=== PATIENT | male | born 2000 | race Caucasian/White ===

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

== ENCOUNTER 2021-12-23 17:45 | Emergency (ER) | payer OTHER ==
[~2021-12-23] VITALS: Ht 175.2 cm; Wt 61.2 kg
[~2021-12-23 17:45] MED LIST changes: +NAPROSYN500 MG PO; +TYLENOL325 M1 PO
[2021-12-23 19:13] LABS: BILIRUBIN 1+ (Negative); BLOOD Negative (Negative); CLARITY Cloudy (Clear); COLOR Dark Yellow (Yellow); GLUCOSE Negative (Negative); KETONE 1+ (Negative); LEUKO ESTERASE Trace (Negative); NITRITE Negative (Negative); PH 6.5 (4.5-8.0); SPECIFIC GRAVITY >= 1.030 (1.001-1.030)
[2021-12-23 19:26] LABS: CALCIUM OXALATE CRYSTALS 1+; MUCOUS 2+
== END 2021-12-23 20:02 | disposition left against medical advice (07) ==
LOC: ED 17:45
PROVIDERS: Student in an Organized Health Care Education/Training Program
DX: N50.82 Scrotal pain (principal); M54.6 Pain in thoracic spine

== ENCOUNTER 2023-04-05 16:20 | Emergency (ER) | payer OTHER ==
[~2023-04-05] VITALS: Ht 170.1 cm; Wt 55.5 kg
[2023-04-05 16:53] LABS: BASO % 0.1 % (0.0-1.0); EOS % 0.1 % (1.0-4.0); HEMATOCRIT 44.5 % (42.0-52.0); LYMPH # 0.6 10*3/uL (1.3-4.4); LYMPH % 3.7 % (27.0-41.0); MEAN CELL VOLUME 85.9 fl (80.0-94.0); MEAN CORPUSCULAR HGB 29.7 pg (27.0-31.0); MEAN CORPUSCULAR HGB CONC 34.6 g/dl (33.0-37.0); MEAN PLATELET VOLUME 11.8 fl (9.6-12.3); MONO % 6.4 % (3.0-9.0); NEUT # 13.8 10*3/uL (2.3-7.9); NEUT % 89.4 % (47.0-73.0); PLATELET COUNT AUTOMATED 152 10*3/uL (130-400); RED BLOOD COUNT 5.18 10*6/uL (4.50-5.90); WHITE BLOOD COUNT 15.4 10*3/uL (4.8-10.8)
[2023-04-05 17:18] LABS: ALKALINE PHOSPHATASE 75 U/L (46-116); BUN 8 mg/dl (9-23); CHLORIDE 107 mmol/L (98-107); POTASSIUM 3.4 mmol/L (3.4-5.1); SGPT/ALT 8 U/L (10-49); TOTAL PROTEIN 7.3 gm/dL (6.0-8.0)
[2023-04-05] MEDS ORDERED: REGLAN10 M1 PO (17:44)
[2023-04-05] MEDS ORDERED: PEPCID20 MG PO (17:44)
== END 2023-04-05 17:47 | disposition home or self-care (01) ==
LOC: ED 16:20
PROVIDERS: Emergency Medicine
DX: R10.13 Epigastric pain (principal); R11.2 Nausea with vomiting, unspecified; J45.909 Unspecified asthma, uncomplicated; Z98.890 Other specified postprocedural states; R20.2 Paresthesia of skin

== ENCOUNTER 2023-06-30 13:56 | Emergency (ER) | payer OTHER ==
[~2023-06-30] VITALS: Ht 172.7 cm; Wt 63.5 kg
[~2023-06-30 13:56] MED LIST changes: +PEPCID20 MG PO; +REGLAN10 M1 PO
[2023-06-30] MEDS ORDERED: DYANAVEL PO (14:12)
== END 2023-06-30 15:53 | disposition home or self-care (01) ==
LOC: ED 13:56
DX: S06.0X0A Concussion without loss of consciousness, initial encounter (principal); S00.33XA Contusion of nose, initial encounter; S00.03XA Contusion of scalp, initial encounter; Z79.899 Other long term (current) drug therapy; Y04.2XXA Assault by strike against or bumped into by another person, initial encounter; Y93.89 Activity, other specified; Y92.89 Other specified places as the place of occurrence of the external cause; Y99.8 Other external cause status